=== PATIENT | female | born 1950 | race African-American/Black ===

== ENCOUNTER 2020-04-02 13:50 | Inpatient (IN) | payer OTHER, MEDICARE, MEDICAID ==
[~2020-04-02] VITALS: Ht 162.6 cm; Wt 48.3 kg
[2020-04-02] MEDS ORDERED: ASPIRIN 81MG TABLET PO ONE (14:45)
[2020-04-02 15:05] LABS: BASOPHILS % 0.2 % (0.0-2.0); EOSINOPHILS % 0.9 % (0.0-5.0); HEMATOCRIT. 47.2 % (36.0-48.0); HEMOGLOBIN. 15.5 g/dL (12.0-16.0); LYMPHOCYTES % 28.9 % (20.0-50.0); MEAN CORPUSCULAR HEMOGLOBIN 33.3 pg (28.0-32.0); MEAN CORPUSCULAR VOLUME 101.1 fL (81.0-99.0); MEAN PLATELET VOLUME 8.7 fl (7.4-10.4); PLATELET 152 x1000/uL (130-400); RED BLOOD CELL COUNT 4.66 mill/uL (4.2-5.4); RED CELL DISTRIBUTION WIDTH 12.8 % (11.6-14.6)
[2020-04-02 15:13] LABS: CHLORIDE 105 mEq/L (98-107)
[2020-04-02 16:08] LABS: D-DIMER 1.6 mg/L FEU (<0.50); INR 1.1; PARTIAL THROMBOPLASTIN TIME 29.3 sec (23.4-31.0); PROTHROMBIN TIME 11.4 sec (9.6-11.0)
[2020-04-02] MEDS: APIXABAN 5 MG TABLET PO SCH (17:00)
[2020-04-02] MEDS ORDERED: FUROSEMIDE 40MG/4ML VIAL IVP ONE (17:45)
[2020-04-02] MEDS: METOPROLOL TARTRATE 25MG TABLET PO SCH (21:00)
[2020-04-03 00:42] VITALS: BP 130/60
[2020-04-03] MEDS ORDERED: APIX5TAB4 PO (01:26)
[2020-04-03] MEDS ORDERED: LISI2.5T47 PO (01:26)
[2020-04-03] MEDS ORDERED: AMIO100T4 PO (01:26)
[2020-04-03] MEDS ORDERED: FAMO-135 PO (01:26)
[2020-04-03] MEDS ORDERED: METO25TA3 PO (01:26)
[2020-04-03] MEDS ORDERED: FURO-151 MT (01:26)
[2020-04-03] MEDS ORDERED: DIGO125T20 PO (01:26)
[2020-04-03] MEDS ORDERED: GABA-533 MT (01:26)
[2020-04-03] MEDS ORDERED: POTA10CA42 MT (01:26)
[2020-04-03] MEDS ORDERED: ACETAMINOPHEN 650MG/20.3ML UDC PO PRN (05:30)
[2020-04-03] MEDS: HYDROCODONE/ACETAMINOPHEN 10/325MG TABLET PO PRN ×3 (06:29→23:15)
[2020-04-03] MEDS: GABAPENTIN 400MG CAPSULE PO SCH ×3 (06:30→22:45)
[2020-04-03 07:43] LABS: BASOPHILS % 0.3 % (0.0-2.0); EOSINOPHILS % 0.2 % (0.0-5.0); HEMOGLOBIN. 16.5 g/dL (12.0-16.0); LYMPHOCYTES % 25.6 % (20.0-50.0); MEAN CORPUSCULAR HEMOGLOBIN 33.9 pg (28.0-32.0); MEAN CORPUSCULAR VOLUME 100.7 fL (81.0-99.0); MEAN PLATELET VOLUME 9.1 fl (7.4-10.4); MONOCYTES % 5.8 % (2.0-8.0); NEUTROPHILS % 68.1 % (40.0-76.0); PLATELET 155 x1000/uL (130-400); RED BLOOD CELL COUNT 4.87 mill/uL (4.2-5.4); RED CELL DISTRIBUTION WIDTH 12.7 % (11.6-14.6)
[2020-04-03 07:58] LABS: CHLORIDE 103 mEq/L (98-107)
[2020-04-03 08:09] LABS: CREATINE KINASE 58 IU/L (26-192)
[2020-04-03 08:11] LABS: CREATINE KINASE MB FRACTION 2.8 ng/mL (0.5-3.6)
[2020-04-03 08:19] VITALS: BP 125/71
[2020-04-03] MEDS: APIXABAN 5 MG TABLET PO SCH ×2 (08:30→16:53)
[2020-04-03] MEDS: AMIODARONE HCL 200 MG TABLET PO SCH (08:31)
[2020-04-03] MEDS: METOPROLOL TARTRATE 25MG TABLET PO SCH ×2 (08:32→22:45)
[2020-04-03] MEDS: FUROSEMIDE 20MG/2ML VIAL IVP SCH (08:38)
[2020-04-03] MEDS ORDERED: ENOXAPARIN 40MG/0.4ML SYR SUBCUT ONE (09:00)
[2020-04-03 12:00] VITALS: BP 125/71
[2020-04-03] MEDS: LISINOPRIL 2.5MG TABLET PO SCH (15:41)
[2020-04-03 16:00] VITALS: BP 125/72
[2020-04-03 20:00] VITALS: BP 141/67
[2020-04-03 20:06] LABS: CREATINE KINASE MB FRACTION 2.3 ng/mL (0.5-3.6)
[2020-04-04] VITALS: BP_SYST 141; BP_SYST 90; BP_DIAS 56; BP_DIAS 67
[2020-04-04 00:37] LABS: CREATINE KINASE MB FRACTION 2.5 ng/mL (0.5-3.6)
[2020-04-04 04:00] VITALS: BP 125/71
[2020-04-04] MEDS: GABAPENTIN 400MG CAPSULE PO SCH ×2 (05:54→13:04)
[2020-04-04] MEDS: HYDROCODONE/ACETAMINOPHEN 10/325MG TABLET PO PRN ×2 (06:00→13:07)
[2020-04-04 08:00] VITALS: BP 119/75
[2020-04-04] MEDS: METOPROLOL TARTRATE 25MG TABLET PO SCH ×2 (09:00→10:10)
[2020-04-04] MEDS: FUROSEMIDE 20MG/2ML VIAL IVP SCH (09:59)
[2020-04-04] MEDS: AMIODARONE HCL 200 MG TABLET PO SCH (10:00)
[2020-04-04] MEDS: LISINOPRIL 2.5MG TABLET PO SCH (10:00)
[2020-04-04] MEDS: APIXABAN 5 MG TABLET PO SCH ×2 (10:00→16:11)
[2020-04-04 12:00] VITALS: BP 108/58
[2020-04-04 14:56] VITALS: BP 108/58
[2020-04-04 16:00] VITALS: BP 137/60
== END 2020-04-04 17:00 | disposition home or self-care (01) | DRG 280 ==
LOC: ER 13:50 → 5WST 17:18 → ENRESERV 23:22
PROVIDERS: ADMIT Internal Medicine Nephrology; ATTEND Internal Medicine Nephrology
PROC: 4B02XTZ Measurement of Cardiac Defibrillator, External Approach (ICD-10-PCS; principal; 2020-04-02)
DX: T82.118A Breakdown (mechanical) of other cardiac electronic device, initial encounter (principal); I50.23 Acute on chronic systolic (congestive) heart failure; I21.4 Non-ST elevation (NSTEMI) myocardial infarction; I42.9 Cardiomyopathy, unspecified; I48.92 Unspecified atrial flutter; I48.91 Unspecified atrial fibrillation; I11.0 Hypertensive heart disease with heart failure; E78.5 Hyperlipidemia, unspecified; Y71.2 Prosthetic and other implants, materials and accessory cardiovascular devices associated with adverse incidents; Y92.89 Other specified places as the place of occurrence of the external cause; Z95.2 Presence of prosthetic heart valve; Z88.0 Allergy status to penicillin; Z88.5 Allergy status to narcotic agent; Z79.899 Other long term (current) drug therapy; Z79.01 Long term (current) use of anticoagulants; I69.331 Monoplegia of upper limb following cerebral infarction affecting right dominant side
CPT/HCPCS: 36415; 71045; 80048; 80053; 80061; 82550; 82553; 83605; 83735; 83880; 84484; 85025; 85379; 93005; 93306; 96374; 99285; J1940

== ENCOUNTER → 2021-03-21 | Outpatient (CLI) | payer MEDICARE, OTHER, MEDICAID ==
[~2021-03-21] MED LIST: AMIO100T4 PO; APIX5TAB4 PO; DIGO125T20 PO; FAMO-135 PO; FURO-151 MT; GABA-533 MT; LISI2.5T47 PO; METO25TA3 PO; POTA10CA42 MT
== END | disposition home or self-care (01) ==
LOC: LAB 11:26
PROVIDERS: ATTEND Specialist
DX: R06.02 Shortness of breath (principal); Z20.822 Contact with and (suspected) exposure to COVID-19
CPT/HCPCS: 87426

== ENCOUNTER → 2021-03-22 | Day surgery (SDC) | payer MEDICARE, OTHER, MEDICAID ==
[~2021-03-22] VITALS: Ht 162.6 cm; Wt 56.9 kg
[~2021-03-22] MED LIST changes: +ACETAMINOPHEN 325MG TABLET PO PRN; +ASPIRIN/SOD BICARB/CITRIC ACID 324MG TAB EFF ONE; +DIPHENHYDRAMINE 50MG/ML VIAL ONE; +FAMOTIDINE 20MG/2ML VIAL IV ONE; +FENTANYL CITRATE/PF 50MCG/ML 2ML VIAL ONE; +HEPARIN SODIUM 1,000 UNIT/1ML VIAL IV ONE; +HYDROCORTISONE SOD SUCCINATE 250 MG/2 ML VIAL ONE; +IODIXANOL 320MG/ML 100 ML BOTTLE IV ONE; +LIDOCAINE HCL 1% 20ML VIAL (Pyxis) INJ ONE; +MIDAZOLAM HCL 2 MG/2 ML VIAL ONE; +MORPHINE SULFATE 2 MG/ML CPJ (NOT FOR IM USE) IV PRN; +NICARDIPINE 100MCG/ML 10ML VIAL (CATH LAB) IV ONE; +NITROGLYCERIN 50MCG/ML 10ML VIAL (CATH LAB) IV ONE; +ONDANSETRON HCL 4MG/2ML INJ IV PRN
[2021-03-22 08:07] LABS: HEMATOCRIT 38.6 % (36.0-48.0); HEMOGLOBIN 12.8 g/dL (12.0-16.0); MEAN CORPUSCULAR VOLUME 99.4 fL (81.0-99.0); PLATELET 136 x1000/uL (130-400); RED BLOOD CELL COUNT 3.89 mill/uL (4.2-5.4); RED CELL DISTRIBUTION WIDTH 13.5 % (11.6-14.6)
== END | disposition home or self-care (01) ==
LOC: CCL 06:59
PROVIDERS: ATTEND Specialist
DX: I25.10 Atherosclerotic heart disease of native coronary artery without angina pectoris (principal); Z79.82 Long term (current) use of aspirin; Z79.899 Other long term (current) drug therapy; Z98.890 Other specified postprocedural states; Z88.8 Allergy status to other drugs, medicaments and biological substances; Z88.0 Allergy status to penicillin; Z88.6 Allergy status to analgesic agent; Z91.013 Allergy to seafood
CPT/HCPCS: 36415; 85027; 93454; C1769; C1887; C1893; J1200; J1644; J1720; J2250; J3010; J3490; Q9967